=== PATIENT | male | born 1960 | race African-American/Black ===

== ENCOUNTER 2016-11-24 22:45 | Emergency (ER) | payer OTHER ==
[2016-11-24 22:48] VITALS: BMI 30.7
[2016-11-24] MEDS ORDERED: ACETAMINOPHEN INJECTION 100 ML IVPB ONE (23:10)
[2016-11-24 23:13] LABS: BASOPHIL 0.2 % (0-2.0); EOSINOPHIL 1.7 % (0-4.5); MCH 29.9 pg (25.7-33.7); MCHC 33.2 g/dl (32.0-35.9); MEAN PLT VOLUME 7.8 fl (7.5-11.1); PLATELET COUNT 158 K/MM3 (134-434); RDW 13.2 % (11.9-15.9); WHITE BLOOD COUNT 7.8 K/mm3 (4.0-10.0)
[2016-11-24] MEDS ORDERED: ACETAMINOPHEN 1000 MG/100 ML VIAL (NON FORMULARY) IVPB ONE (23:15)
[2016-11-24 23:26] LABS: INR 1.07 (0.82-1.09); PROTHROMBIN TIME (PATIENT) 11.8 SEC (9.98-11.88)
[2016-11-24 23:29] LABS: ACTIVATED PTT 28.4 SECONDS (26.9-34.4)
[2016-11-24] MEDS ORDERED: SODIUM CHLORIDE 1,000 ML IV STA (23:45)
[2016-11-24] MEDS ORDERED: KETOROLAC TROMETHAMINE 30 MG/1 ML VIAL IVPUSH ONE (23:50)
--- NOTE | 2016-11-25 00:28 | PDOC ---
History of Present Illness - General History Source: Patient Exam Limitations: No Limitations - History of Present Illness Initial Comments: 11/25/16 00:45 The patient is a 56 year old male, with a significant past medical history of chronic left sided hip pain, who presents to the emergency department with fever , chills, headache, generalized weakness, runny nose, cough and nausea onset today. He notes that his cough is mild and dry in nature. He denies any sick contacts or recent travel. 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 He notes that he did receive the flu shot this year. The patient denies chest pain, shortness of breath, and dizziness. Denies vomit , diarrhea and constipation. Denies dysuria, frequency, urgency and hematuria. Allergies: None Past surgical history: None reported Social history: No alcohol, tobacco or drug use reported <Chandrakant Doe - Last Filed: 11/25/16 00:45> - General History Source: Patient Exam Limitations: No Limitations <Alli Sunshine - Last Filed: 11/25/16 02:13> - General Chief Complaint: SIRS, Suspected/Possible Stated Complaint: CHILLS Time Seen by Provider: 11/24/16 23:27 Past History <Chandrakant Doe - Last Filed: 11/25/16 00:45> - Past Medical History HTN: Yes - Psycho/Social/Smoking Cessation Hx Suicidal Ideation: No Smoking History: Never smoked Information on smoking cessation initiated: No Hx Alcohol Use: No Drug/Substance Use Hx: No Substance Use Type: None <Alli Sunshine - Last Filed: 11/25/16 02:13> - Past Medical History Allergies/Adverse Reactions: Allergies Allergy/AdvReac Type Severity Reaction Status Date / Time No Known Allergies Allergy Verified 11/24/16 22:49 Home Medications: Ambulatory Orders Acetaminophen [Tylenol] 650 mg PO Q4H PRN #20 tablet 11/25/16 Naproxen [Naprosyn -] 500 mg PO BID PRN #20 tablet 11/25/16 Review of Systems - Review of Systems Able to Perform ROS?: Yes Comments:: 11/25/16 00:46 GENERAL/CONSTITUTIONAL: +Fever, chills and generalized weakness. HEAD, EYES, EARS, NOSE AND THROAT: +Runny nose. No change in vision. No ear pain or discharge. No sore throat. CARDIOVASCULAR: No chest pain or shortness of breath RESPIRATORY: +Cough. No wheezing, or hemoptysis. GASTROINTESTINAL: +Nausea. No vomiting, diarrhea or constipation. GENITOURINARY: No dysuria, frequency, or change in urination. MUSCULOSKELETAL: No joint or muscle swelling or pain. No neck or back pain. SKIN: No rash NEUROLOGIC: No headache, vertigo, loss of consciousness, or change in strength/ sensation. ENDOCRINE: No increased thirst. No abnormal weight change HEMATOLOGIC/LYMPHATIC: No anemia, easy bleeding, or history of blood clots. ALLERGIC/IMMUNOLOGIC: No hives or skin allergy. <Chandrakant Doe - Last Filed: 11/25/16 00:45> *Physical Exam - Vital Signs Last Vital Signs Temp Pulse Resp BP Pulse Ox 101.1 F H 114 H 18 163/108 95 11/24/16 22:46 11/24/16 22:46 11/24/16 22:46 11/24/16 22:46 11/24/16 22:46 - Physical Exam Comments: 11/25/16 00:46 GENERAL: Awake, alert, and fully oriented, in no acute distress HEAD: No signs of trauma, normocephalic, atraumatic EYES: PERRLA, EOMI, sclera anicteric, conjunctiva clear ENT: Auricles normal inspection, hearing grossly normal, nares patent, oropharynx clear without exudates. Moist mucosa NECK: Normal ROM, supple, no lymphadenopathy, JVD, or masses LUNGS: No distress, speaks full sentences, clear to auscultation bilaterally HEART: Regular rate and rhythm, normal S1 and S2, no murmurs, rubs or gallops, peripheral pulses normal and equal bilaterally. ABDOMEN: Soft, nontender, normoactive bowel sounds. No guarding, no rebound. No masses EXTREMITIES: Normal inspection, Normal range of motion, no edema. No clubbing or cyanosis. NEUROLOGICAL: Cranial nerves II through XII grossly intact. Normal speech, normal gait, no focal sensorimotor deficits SKIN: Warm, Dry, normal turgor, no rashes or lesions noted. <Chandrakant Doe - Last Filed: 11/25/16 00:45> - Vital Signs Last Vital Signs Temp Pulse Resp BP Pulse Ox 101.1 F H 114 H 18 163/108 95 11/24/16 22:46 11/24/16 22:46 11/24/16 22:46 11/24/16 22:46 11/24/16 22:46 <Alli Sunshine - Last Filed: 11/25/16 02:13> Heart Score/ECG Review #1 ECG reviewed & interpreted by me at: 23:30 11/25/16 00:28 NSR 108, no std/bin, normal axis, normal intervals, QTC 434 msec <Alli Sunshine - Last Filed: 11/25/16 02:13> ED Treatment Course - LABORATORY CBC & Chemistry Diagram: 11/24/16 23:00 11/24/16 23:00 - ADDITIONAL ORDERS Additional order review: Laboratory Results 11/24/16 11/24/16 11/24/16 23:44 23:00 23:00 INR PTT (Actin FS) Sodium Cancelled Potassium Cancelled Chloride Cancelled Carbon Dioxide Cancelled Anion Gap Cancelled BUN Cancelled Creatinine Cancelled Creat Clearance w eGFR Cancelled Random Glucose Cancelled Lactic Acid 1.956 Calcium Cancelled Total Bilirubin Cancelled AST Cancelled ALT Cancelled Alkaline Phosphatase Cancelled Creatine Kinase Cancelled Troponin I Cancelled Total Protein Cancelled Albumin Cancelled Blood Type Cancelled Antibody Screen Cancelled Spec Expiration Date Cancelled 11/24/16 23:00 INR 1.07 PTT (Actin FS) 28.4 Sodium Potassium Chloride Carbon Dioxide Anion Gap BUN Creatinine Creat Clearance w eGFR Random Glucose Lactic Acid Calcium Total Bilirubin AST ALT Alkaline Phosphatase Creatine Kinase Troponin I Total Protein Albumin Blood Type Antibody Screen Spec Expiration Date 11/24/16 23:00 Influenza Types A,B Antigen (CRISTINA) - Final Nasopharyngeal Swab - Final 11/24/16 23:00 RBC 4.78 MCV 90.0 MCHC 33.2 RDW 13.2 MPV 7.8 Neutrophils % 73.0 Lymphocytes % 20.2 Monocytes % 4.9 Eosinophils % 1.7 Basophils % 0.2 - Medications Given in the ED: ED Medications Discontinued Medications Generic Name Dose Route Start Last Admin Trade Name Freq PRN Reason Stop Dose Admin Acetaminophen 1,000 mg 11/24/16 23:15 11/25/16 00:07 Ofirmev Injection - IVPB 11/24/16 23:16 1,000 mg NOW ONE Administration Sodium Chloride 1,000 mls @ 1,000 mls/hr 11/24/16 23:45 11/25/16 00:02 Normal Saline - IV 11/25/16 00:44 1,000 mls/hr ASDIR STA Administration Ketorolac Tromethamine 30 mg 11/24/16 23:50 11/25/16 00:06 Toradol Injection - IVPUSH 11/24/16 23:51 30 mg ONCE ONE Administration <Chandrakant Doe - Last Filed: 11/25/16 00:45> - LABORATORY CBC & Chemistry Diagram: 11/24/16 23:00 11/25/16 00:01 - ADDITIONAL ORDERS Additional order review: Laboratory Results 11/24/16 11/24/16 11/24/16 23:00 23:00 23:00 INR 1.07 PTT (Actin FS) 28.4 Sodium Cancelled Potassium Cancelled Chloride Cancelled Carbon Dioxide Cancelled Anion Gap Cancelled BUN Cancelled Creatinine Cancelled Creat Clearance w eGFR Cancelled Random Glucose Cancelled Calcium Cancelled Total Bilirubin Cancelled AST Cancelled ALT Cancelled Alkaline Phosphatase Cancelled Creatine Kinase Cancelled Troponin I Cancelled Total Protein Cancelled Albumin Cancelled Blood Type Cancelled Antibody Screen Cancelled Spec Expiration Date Cancelled 11/24/16 23:00 Influenza Types A,B Antigen (CRISTINA) - Final Nasopharyngeal Swab - Final 11/24/16 23:00 RBC 4.78 MCV 90.0 MCHC 33.2 RDW 13.2 MPV 7.8 Neutrophils % 73.0 Lymphocytes % 20.2 Monocytes % 4.9 Eosinophils % 1.7 Basophils % 0.2 - RADIOLOGY Radiology Studies Ordered: Category Date Time Status CHEST X-RAY PORTABLE* [RAD] Stat Radiology 11/25/16 23:58 Taken - Medications Given in the ED: ED Medications Discontinued Medications Generic Name Dose Route Start Last Admin Trade Name Freq PRN Reason Stop Dose Admin Acetaminophen 1,000 mg 11/24/16 23:15 11/25/16 00:07 Ofirmev Injection - IVPB 11/24/16 23:16 1,000 mg NOW ONE Administration Ketorolac Tromethamine 30 mg 11/24/16 23:50 11/25/16 00:06 Toradol Injection - IVPUSH 11/24/16 23:51 30 mg ONCE ONE Administration <Alli Sunshine - Last Filed: 11/25/16 02:13> Medical Decision Making - Medical Decision Making 11/25/16 00:23 A portion of this note was documented by scribe services under my direction. I have reviewed the details of the note, within reason, and agree with the documentation with the following case summary and management plan written by me. Patient treated in the ED. Nursing notes are reviewed and incorporated into the medical decision-making. Vital signs reviewed. Peripheral IV access obtained by the nurse, laboratory studies are drawn and sent, reviewed and interpreted by myself. Vital Signs Temp Pulse Resp BP Pulse Ox 101.1 F H 114 H 18 163/108 95 11/24/16 22:46 11/24/16 22:46 11/24/16 22:46 11/24/16 22:46 11/24/16 22:46 56 year old male with pmh HTN, left sided sciatica p/w flu like symptoms since this afternoon. This morning, the patient was at [facility] ED for exacerbation of his sciatica (which he has had for months). When he left, he felt some nasal congestion, dry cough, body aches, and tactile fevers. [place] general malaise and unwell and came into ED. Denies nausea, vomiting, diarrhea, dysuria. I suspect that the patient either has a flu, viral syndrome. Will obtain labs, chest xray, influenza swab, and treat with IVF, tylenol and toradol and reassess. 11/25/16 02:07 CBC, BMP 11/24/16 23:00 11/25/16 00:01 CMP Sodium 140 mmol/L (136-145) 11/25/16 00:01 Potassium 4.3 mmol/L (3.5-5.1) 11/25/16 00:01 Chloride 102 mmol/L (98-107) 11/25/16 00:01 Carbon Dioxide 30 mmol/L (21-32) 11/25/16 00:01 Anion Gap 8 (8-16) 11/25/16 00:01 BUN 12 mg/dL (7-18) 11/25/16 00:01 Creatinine 1.2 mg/dL (0.7-1.3) 11/25/16 00:01 Creat Clearance w eGFR > 60 (>60) 11/25/16 00:01 Random Glucose 141 mg/dL (74-106) H 11/25/16 00:01 Lactic Acid 1.956 mmol/L (0.4-2.0) 11/24/16 23:44 Calcium 8.3 mg/dL (8.5-10.1) L 11/25/16 00:01 Total Bilirubin 0.3 mg/dL (0.2-1.0) 11/25/16 00:01 AST 37 U/L (15-37) 11/25/16 00:01 ALT 17 U/L (12-78) 11/25/16 00:01 Alkaline Phosphatase 80 U/L (45-117) 11/25/16 00:01 Creatine Kinase 252 IU/L (39-308) 11/25/16 00:01 Creatine Kinase Index 0.4 % (0.0-5.0) 11/25/16 00:01 CK-MB (CK-2) 1.113 ng/ml (0.5-3.6) 11/25/16 00:01 Troponin I < 0.02 ng/ml (0.00-0.05) 11/25/16 00:01 Total Protein 7.3 g/dl (6.4-8.2) 11/25/16 00:01 Albumin 3.5 g/dl (3.4-5.0) 11/25/16 00:01 Urine Test Results Urine Color Dkyellow 11/25/16 01:30 Urine Appearance Clear 11/25/16 01:30 Urine pH 5.0 (5.0-8.0) 11/25/16 01:30 Ur Specific [place] 1.023 (1.001-1.035) 11/25/16 01:30 Urine Protein Negative (NEGATIVE) 11/25/16 01:30 Urine Glucose (UA) Negative (NEGATIVE) 11/25/16 01:30 Urine Ketones Trace (NEGATIVE) H 11/25/16 01:30 Urine Blood Negative (NEGATIVE) 11/25/16 01:30 Urine Nitrite Negative (NEGATIVE) 11/25/16 01:30 Urine Bilirubin Negative (NEGATIVE) 11/25/16 01:30 Ur Leukocyte Esterase Negative (NEGATIVE) 11/25/16 01:30 Labs and UA reviewed. Chest xray reviewed by me, pending official radiology. The patient reports feeling much better. Influenza swab negative twice. Likely viral syndrome. Supportive care. <Alli Sunshine - Last Filed: 11/25/16 02:13> *DC/Admit/Observation/Transfer - Attestations Scribe Attestion: 11/25/16 00:46 Documentation prepared by Chandrakant Doe, acting as director of graduate medical education for Alli Sunshine MD. <Chandrakant Doe - Last Filed: 11/25/16 00:45> - Discharge Dispostion Admit: No <Alli Sunshine - Last Filed: 11/25/16 02:13> Diagnosis at time of Disposition: Viral syndrome - Discharge Dispostion Disposition: HOME Condition at time of disposition: Improved - Prescriptions Prescriptions: Naproxen [Naprosyn -] 500 mg PO BID PRN #20 tablet PRN Reason: Pain/fever Acetaminophen [Tylenol] 650 mg PO Q4H PRN #20 tablet PRN Reason: Fever/Pain - Patient Instructions Printed Discharge Instructions: DI for Viral Syndrome Additional Instructions: Your flu test is negative. Your blood work is unremarkable. Drink plenty of fluids and rest. It may take several days before it improves. Take 500 mg naproxen every 12 hours as needed for fever/pain. Take 650 mg tylenol every 4 hours as needed for fever/pain.
[2016-11-25 00:55] LABS: ALBUMIN 3.5 g/dl (3.4-5.0); ANION GAP 8 (8-16); CALCIUM 8.3 mg/dL (8.5-10.1); CO2 30 mmol/L (21-32); CREATININE 1.2 mg/dL (0.7-1.3); GLUCOSE,RANDOM 141 mg/dL (74-106); SGOT/AST 37 U/L (15-37); SGPT/ALT 17 U/L (12-78)
[2016-11-25 00:59] LABS: ALK PHOS 80 U/L (45-117); BILIRUBIN,TOTAL 0.3 mg/dL (0.2-1.0); TOT PROT 7.3 g/dl (6.4-8.2)
[2016-11-25 01:24] LABS: TROPONIN I < 0.02 ng/ml (0.00-0.05)
[2016-11-25] MEDS ORDERED: SODIUM CHLORIDE 1,000 ML IV STA (01:38)
[2016-11-25 01:44] LABS: URINE APPEARANCE CLEAR; URINE BILIRUBIN NEGATIVE (NEGATIVE); URINE BLOOD NEGATIVE (NEGATIVE); URINE COLOR DKYELLOW; URINE GLUCOSE (UA) NEGATIVE (NEGATIVE); URINE KETONE TRACE (NEGATIVE); URINE LEUK ESTERASE NEGATIVE (NEGATIVE); URINE NITRITE NEGATIVE (NEGATIVE); URINE PROTEIN NEGATIVE (NEGATIVE); URINE UROBILINOGEN 2.0 E.U/dl E.U./dl (0.2-1.0)
[2016-11-25 02:26] VITALS: BP 146/84; PULSE 86; TEMP 98
--- NOTE | 2016-11-25 17:31 | EKG ---
Test Reason : Blood Pressure : / mmHG Vent. Rate : 108 BPM Atrial Rate : 108 BPM P-R Int : 144 ms QRS Dur : 074 ms QT Int : 324 ms P-R-T Axes : 049 068 045 degrees QTc Int : 434 ms SINUS TACHYCARDIA POSSIBLE RIGHT VENTRICULAR HYPERTROPHY ABNORMAL ECG NO PREVIOUS ECGS AVAILABLE Confirmed by BARBARA ROME MD ([id number]) on 11/25/2016 5:31:22 PM Referred By: Confirmed By:BARBARA ROME MD
== END 2016-11-25 02:28 | disposition home or self-care (01) ==
LOC: JER 22:45
PROC: 3E0337Z Introduction of Electrolytic and Water Balance Substance into Peripheral Vein, Percutaneous Approach (ICD-10-PCS; principal; 2016-11-24)
PROC: 3E033NZ Introduction of Analgesics, Hypnotics, Sedatives into Peripheral Vein, Percutaneous Approach (ICD-10-PCS; 2016-11-24)
PROC: 3E0333Z Introduction of Anti-inflammatory into Peripheral Vein, Percutaneous Approach (ICD-10-PCS; 2016-11-24)
DX: B34.9 Viral infection, unspecified (principal); I10 Essential (primary) hypertension; M54.42 Lumbago with sciatica, left side
CPT/HCPCS: 36415; 71010-TC; 80053; 81003; 82550; 82553; 83605; 84484; 85025; 85610; 85730; 87040; 87086; 87804; 93005; 93010; 99283-25

== ENCOUNTER 2018-01-20 00:36 | Emergency (ER) | payer OTHER ==
--- NOTE | 2018-01-20 02:18 | PDOC ---
Attending Attestation - Resident Resident Name: MalindaAlex - ED Attending Attestation I have performed the following: I have examined & evaluated the patient, The case was reviewed & discussed with the resident, I agree w/resident's findings & plan, Exceptions are as noted <Chandrakant Quevedo - Last Filed: 01/20/18 02:18> - HPI HPI: 01/20/18 03:29 Patient is a 58 year old male with a significant past medical history of chronic left sided hip pain, HTN, and prostate disorder, who presents to the ED with complaints of who presents to the ED with complaints of substance overdose. Patient reports taking his prescribed pain medications, instead deciding to take heroin instead. He reports immediately after taking heroin, he did not want to stay high so followed to take narcan. Patient currently states he is experiencing chills and nausea, while in the ED. Denies chest pain, Sob. Denies nausea, vomiting. Denies contact with sick individuals, out of state travelling. Denies any other symptoms. Allergies: None Social History: Lives with . No smoking. No alcohol. Current substance use. Surgical History: None PMD: None <Tello Domínguez - Last Filed: 01/20/18 03:29>
[2018-01-20] MEDS ORDERED: ONDANSETRON 4 MG/2 ML VIAL IVPUSH ONE (02:29)
--- NOTE | 2018-01-20 02:29 | PDOC ---
History of Present Illness - General Chief Complaint: Pain Stated Complaint: PAIN Time Seen by Provider: 01/20/18 01:37 History Source: Patient Exam Limitations: No Limitations - History of Present Illness Initial Comments: 01/20/18 02:20 The patient is a 58M with a PMH of HTN and prostate disorder who presents to the ER after taking heroin and giving himself nalaxone. The patient states that he was sick of giving himself pain medications and decided to take heroin. After snorting heroin, he felt like he did not want to stay high and took Narcan. He is now complaining of chills and nausea. Past History - Past Medical History Allergies/Adverse Reactions: Allergies Allergy/AdvReac Type Severity Reaction Status Date / Time No Known Allergies Allergy Verified 01/20/18 03:49 Home Medications: Ambulatory Orders NK [No Known Home Medication] 01/20/18 HTN: Yes - Suicide/Smoking/Psychosocial Hx Smoking History: Never smoked Hx Alcohol Use: No Drug/Substance Use Hx: No Substance Use Type: None Review of Systems - Review of Systems Able to Perform ROS?: Yes Comments:: 01/20/18 02:30 GENERAL/CONSTITUTIONAL: Positive for chills. No fever. No weakness. HEAD, EYES, EARS, NOSE AND THROAT: No change in vision. No ear pain or discharge. No sore throat. CARDIOVASCULAR: No chest pain, palpitations, or lightheadedness. RESPIRATORY: No cough, wheezing, shortness of breath, or hemoptysis. GASTROINTESTINAL: Positive for nausea. No vomiting, diarrhea, constipation, or abdominal pain. GENITOURINARY: No dysuria, frequency, hematuria, or change in urination. MUSCULOSKELETAL: No joint or muscle swelling or pain. No neck or back pain. SKIN: No rash or lesions. NEUROLOGIC: No headache, numbness, tingling, weakness, loss of consciousness, or change in strength/sensation. ENDOCRINE: No increased thirst. No abnormal weight change. HEMATOLOGIC/LYMPHATIC: No anemia, easy bleeding, or history of blood clots. ALLERGIC/IMMUNOLOGIC: No hives or skin allergy. Is the patient limited [place] proficient: No *Physical Exam - Physical Exam Comments: 01/20/18 02:37 GENERAL: Well developed, well nourished. Awake and alert. No acute distress. HEENT: Normocephalic, atraumatic. Hearing grossly normal. Dry mucous membranes. PERRLA, EOMI. No conjunctival pallor. Sclera are non-icteric. NECK: Supple. Full ROM. No JVD. CARDIOVASCULAR: Regular rate and rhythm. No murmurs, rubs, or gallops. PULMONARY: No evidence of respiratory distress. Lungs clear to auscultation bilaterally. No wheezing, rales or rhonchi. ABDOMINAL: Soft. Non-tender. Non-distended. No rebound or guarding. MUSCULOSKELETAL: Normal range of motion at all joints. No bony deformities or tenderness. EXTREMITIES: No cyanosis. No clubbing. No edema. No calf tenderness. SKIN: Warm and dry. Normal capillary refill. No rashes. No jaundice. NEUROLOGICAL: Alert, awake, appropriate. Cranial nerves 2-12 intact. Normal speech. PSYCHIATRIC: Cooperative. Good eye contact. Appropriate mood and affect. ED Treatment Course - LABORATORY CBC & Chemistry Diagram: 01/20/18 03:00 01/20/18 03:00 - RADIOLOGY Radiology Studies Ordered: Category Date Time Status CHEST X-RAY PORTABLE* [RAD] Stat Radiology 01/20/18 02:20 Ordered Medical Decision Making - Medical Decision Making 01/20/18 02:39 The patient is a 58M with a PMH of HTN and prostate problems who presents to the ER after taking heroin and then subsequently giving himself narcan. The patient is having these jolt-like chills. I am drawing basic labs, u-tox, and giving him supportive treatment on a monitor. Will monitor closely. Pt has also requested admission for rehab. 01/20/18 03:19 Preliminary read of CXR is negative. Pending labs. Hydrating the patient and I have given zofran for nausea relief. 01/20/18 05:05 Pt is resting comfortably and is requesting rehab. Will place call for rehab bed. 01/20/18 05:49 Multiple phone calls have been placed with no answer. Will retry at 0645. 01/20/18 07:43 Pt signed out to Dr[address] Helms. *DC/Admit/Observation/Transfer Diagnosis at time of Disposition: Heroin abuse - Discharge Dispostion Disposition: HOME Condition at time of disposition: Good - Referrals - Patient Instructions Additional Instructions: You were seen in the ED today after taking opiates. Please refrain from taking opiates in the future. Please return if you take any new, worsening or concerning symptoms. Please follow up with [facility] at [address] [facility] in [facility], phone number is [phone]. - Post Discharge Activity Forms/Work/School Notes: Back to Work
[2018-01-20 03:14] LABS: BASO % 0.2 % (0-2.0); EOS % 0.3 % (0-4.5); HEMATOCRIT 40.2 % (35.4-49); HEMOGLOBIN 13.7 GM/dL (11.7-16.9); MCH 30.9 pg (25.7-33.7); MCHC 34.2 g/dl (32.0-35.9); MEAN CELL VOLUME 90.3 fl (80-96); MEAN PLT VOLUME 7.9 fl (7.5-11.1); MONO % 7.4 % (3.8-10.2); NEUT % 83.1 % (42.8-82.8); PLATELET COUNT 157 K/MM3 (134-434); RBC 4.45 M/mm3 (4.00-5.60); RDW 13.6 % (11.9-15.9); WHITE BLOOD COUNT 8.8 K/mm3 (4.0-10.0)
[2018-01-20 03:22] LABS: COCAINE, UR NEGATIVE ng/ml (CUTOFF=300); METHADONE, UR NEGATIVE ng/ml (CUTOFF=300); PHENCYCLIDINE,URINE NEGATIVE ng/ml (CUTOFF=25); URINE AMPHETAMINES NEGATIVE ng/ml (CUTOFF=500); URINE BARBITURATES NEGATIVE ng/ml (CUTOFF=200); URINE BENZODIAZEPINES NEGATIVE ng/ml (CUTOFF=200)
[2018-01-20 03:24] LABS: OPIATES, URI POSITIVE ng/ml (CUTOFF=300)
[2018-01-20 03:41] LABS: ALBUMIN 3.7 g/dl (3.4-5.0); ANION GAP 10 (8-16); BILIRUBIN,TOTAL 0.3 mg/dL (0.2-1.0); BLOOD UREA NITROGEN 12 mg/dL (7-18); CALCIUM 8.7 mg/dL (8.5-10.1); CHLORIDE 103 mmol/L (98-107); CO2 28 mmol/L (21-32); GLUCOSE,RANDOM 102 mg/dL (74-106); POTASSIUM 3.4 mmol/L (3.5-5.1); SGOT/AST 28 U/L (15-37); SGPT/ALT 12 U/L (12-78); SODIUM 141 mmol/L (136-145)
[2018-01-20 03:44] LABS: ALK PHOS 93 U/L (45-117)
[2018-01-20 03:49] VITALS: BMI 27.8
[2018-01-20] MEDS ORDERED: ONDANSETRON 4 MG/2 ML VIAL ONE (04:12)
--- NOTE | 2018-01-20 07:15 | PDOC ---
*Physical Exam - Vital Signs Last Vital Signs Temp Pulse Resp BP Pulse Ox 98.9 F 74 15 108/73 100 01/20/18 06:29 01/20/18 06:29 01/20/18 06:29 01/20/18 06:29 01/20/18 06:29 - Physical Exam Comments: 01/20/18 07:21 GENERAL: Awake, alert, tearful, responds to name, not speaking HEAD: No signs of trauma, normocephalic, atraumatic EYES: PERRLA, EOMI, sclera anicteric, conjunctiva clear, pupils 3mm ENT: Auricles normal inspection, hearing grossly normal, nares patent, oropharynx clear without exudates. Moist mucosa NECK: Normal ROM, supple, no lymphadenopathy, JVD, or masses LUNGS: No distress, speaks full sentences, clear to auscultation bilaterally HEART: Regular rate and rhythm, normal S1 and S2, no murmurs, rubs or gallops, peripheral pulses normal and equal bilaterally. EXTREMITIES: Normal inspection, Normal range of motion, no edema. No clubbing or cyanosis. NEUROLOGICAL: Cranial nerves II through XII grossly intact. Moves all extremities SKIN: Warm, Dry, normal turgor, no rashes or lesions noted. ED Treatment Course - LABORATORY CBC & Chemistry Diagram: 01/20/18 03:00 01/20/18 03:00 - ADDITIONAL ORDERS Additional order review: Laboratory Results 01/20/18 01/20/18 03:05 03:00 Sodium 141 Potassium 3.4 L D Chloride 103 Carbon Dioxide 28 Anion Gap 10 BUN 12 Creatinine 1.0 Creat Clearance w eGFR > 60 Random Glucose 102 D Calcium 8.7 Total Bilirubin 0.3 AST 28 D ALT 12 D Alkaline Phosphatase 93 Creatine Kinase 459 H Creatine Kinase Index 0.6 CK-MB (CK-2) 3.029 Troponin I 0.03 D Total Protein 8.0 Albumin 3.7 Opiates Screen Positive Methadone Screen Negative Barbiturate Screen Negative Phencyclidine Screen Negative Ur Amphetamines Screen Negative MDMA (Ecstasy) Screen Negative Benzodiazepines Screen Negative Cocaine Screen Negative U Marijuana (THC) Screen Negative 01/20/18 03:00 RBC 4.45 MCV 90.3 MCHC 34.2 RDW 13.6 MPV 7.9 Neutrophils % 83.1 H Lymphocytes % 9.0 D Monocytes % 7.4 Eosinophils % 0.3 D Basophils % 0.2 - RADIOLOGY Radiology Studies Ordered: Category Date Time Status HEAD CT WITHOUT CONTRAST [CT] Stat CT Scan 01/20/18 07:10 Ordered - Medications Given in the ED: ED Medications Discontinued Medications Generic Name Dose Route Start Last Admin Trade Name Ivelisse PRN Reason Stop Dose Admin Ondansetron HCl 4 mg 01/20/18 02:29 01/20/18 04:09 Zofran Injection IVPUSH 01/20/18 02:30 4 mg ONCE ONE Administration Medical Decision Making - Medical Decision Making 01/20/18 07:[address] Petty. Patient is 58M who presented to the ED after taking opiates and narcan. During rounds after being informed of results and intention to send him to rehab, patient stopped responding to his name and did not speak to me or his . Patient tearful, eyes open, protecting airway, responding to name but not speaking. No facial droop, unable to elicit any focal muscle weakness, moving all extremities. Vital signs stable and normal, HR 82, satting 100%. Will evaluate further with head ct. 01/20/18 07:17 Laboratory Tests 01/20/18 01/20/18 01/20/18 03:00 03:00 03:05 WBC 8.8 Hgb 13.7 Hct 40.2 Plt Count 157 Creatinine 1.0 Creat Clearance w eGFR > 60 Opiates Screen Positive Labs reviewed. CBC normal. CMP reassuring. Utox positive for opiates, negative otherwise. CXR shows no acute cardiopulmonary process. 01/20/18 08:28 Patient reassessed. Vital signs stable and normal. Patient eating, still tearful , says his name is Raj, but limited in his speech. 01/20/18 10:01 CT negative for acute pathology. 01/20/18 10:21 Patient reassessed. Fully alert and oriented. Speech now normal. States that he wants to go home before going to rehab with his . Given return precautions. Tolerating PO. Will discharge to home with his . *DC/Admit/Observation/Transfer Diagnosis at time of Disposition: Heroin abuse - Discharge Dispostion Disposition: HOME Condition at time of disposition: Good Admit: No - Referrals - Patient Instructions Additional Instructions: You were seen in the ED today after taking opiates. Please refrain from taking opiates in the future. Please return if you take any new, worsening or concerning symptoms. Please follow up with [facility] at [address] [facility] in [facility], phone number is . - Post Discharge Activity Forms/Work/School Notes: Back to Work
--- NOTE | 2018-01-20 09:53 | EKG ---
Test Reason : Blood Pressure : / mmHG Vent. Rate : 086 BPM Atrial Rate : 086 BPM P-R Int : 172 ms QRS Dur : 080 ms QT Int : 374 ms P-R-T Axes : 070 067 060 degrees QTc Int : 447 ms NORMAL SINUS RHYTHM POSSIBLE LEFT ATRIAL ENLARGEMENT WHEN COMPARED WITH ECG OF 24-NOV-2016 23:30, NO SIGNIFICANT CHANGE WAS FOUND Confirmed by CHERYL LOYA MD ([id number]) on 01/20/2018 9:53:16 AM Referred By: Confirmed By:CHERYL LOYA MD
[2018-01-20 10:18] VITALS: BP 129/86; PULSE 79; TEMP 98.6
== END 2018-01-20 10:44 | disposition home or self-care (01) ==
LOC: JER 00:36
PROC: 3E033GC Introduction of Other Therapeutic Substance into Peripheral Vein, Percutaneous Approach (ICD-10-PCS; principal; 2018-01-20)
DX: R68.83 Chills (without fever) (principal); F11.10 Opioid abuse, uncomplicated; I10 Essential (primary) hypertension; M25.552 Pain in left hip; G89.29 Other chronic pain; N42.89 Other specified disorders of prostate
CPT/HCPCS: 36415; 70450-TC; 71045-TC-FY; 80053; 80307; 82550; 82553; 84484; 85025; 93005; 93010; 96374; 99283-25

== ENCOUNTER 2020-11-03 03:11 | Emergency (ER) | payer OTHER ==
[2020-11-03 03:17] VITALS: TEMP 98.2; BMI 24.4
[2020-11-03] MEDS ORDERED: FAMOTIDINE 20 MG/50 ML IVPB 20 MG/50 ML MG IVPB ONE ×2 (04:14→06:08)
[2020-11-03 04:36] LABS: INR 1.13 (0.83-1.09); PROTHROMBIN TIME (PATIENT) 13.9 SEC (9.7-13.0)
[2020-11-03 04:43] LABS: CHLORIDE 106 mmol/L (98-107); SODIUM 143 mmol/L (136-145)
[2020-11-03 04:46] LABS: ALBUMIN 3.7 g/dl (3.4-5.0); ANION GAP 7 MMOL/L (8-16); BLOOD UREA NITROGEN 13.9 mg/dL (7-18); CALCIUM 8.2 mg/dL (8.5-10.1); CO2 30 mmol/L (21-32); GLUCOSE,RANDOM 96 mg/dL (74-106)
[2020-11-03 04:49] LABS: SGOT/AST 27 U/L (15-37); SGPT/ALT 19 U/L (13-61)
[2020-11-03 04:51] LABS: BILIRUBIN,TOTAL 0.2 mg/dL (0.2-1); TOT PROT 7.3 g/dl (6.4-8.2)
[2020-11-03 04:52] LABS: ALK PHOS 81 U/L (45-117)
[2020-11-03 05:07] LABS: BASO % 0.4 % (0-2.0); EOS % 6.4 % (0-4.5); HEMATOCRIT 38.5 % (35.4-49); HEMOGLOBIN 12.9 GM/dL (11.7-16.9); LYMPH % 43.9 % (8-40); MCH 31.3 pg (25.7-33.7); MCHC 33.5 g/dl (32.0-35.9); MEAN CELL VOLUME 93.2 fl (80-96); MONO % 7.9 % (3.8-10.2); NEUT % 41.4 % (42.8-82.8); PLATELET COUNT 143 K/MM3 (134-434); RBC 4.13 M/mm3 (4.00-5.60); RDW 13.4 % (11.9-15.9); WHITE BLOOD COUNT 4.9 K/mm3 (4.0-10.0)
[2020-11-03] MEDS ORDERED: POTASSIUM CHLORIDE TABS 20 MEQ TABLET.ER (FP) PO ONE ×2 (05:53→06:07)
[2020-11-03] MEDS ORDERED: MAGNESIUM SULF 50% (8.12 MEQ/2 ML-1 GM VIAL) IVPB ONE (05:53)
[2020-11-03] MEDS ORDERED: MAGNESIUM SULFATE IN WATER 2 GM/50 ML IVPB IVPB ONE (06:08)
[2020-11-03 06:49] VITALS: BP 128/85; PULSE 59
== END 2020-11-03 11:25 | disposition home or self-care (01) ==
LOC: JER 03:11
PROC: 3E033GC Introduction of Other Therapeutic Substance into Peripheral Vein, Percutaneous Approach (ICD-10-PCS; principal; 2020-11-03)
PROC: 3E033GC Introduction of Other Therapeutic Substance into Peripheral Vein, Percutaneous Approach (ICD-10-PCS; 2020-11-03)
DX: R06.02 Shortness of breath (principal)
CPT/HCPCS: 36415; 71046-TC-FY; 80053; 82550; 82553; 84484; 85025; 85610; 93005; 93010; 99285-25